=== PATIENT | male | born 1990 | race African-American/Black ===

== ENCOUNTER 2018-12-08 04:56 | Emergency (ER) | payer MEDICAID, OTHER ==
[~2018-12-08] VITALS: Ht 167.6 cm; Wt 77.0 kg
[2018-12-08] MEDS ORDERED: HYDROCODONE/ACETAMINOPHEN 5/325MG TABLET PO ONE (06:30)
[2018-12-08] MEDS ORDERED: TETRACAINE 0.5% OPHTH DROPS 4ML OP ONE (07:45)
[2018-12-08] MEDS ORDERED: FLUORESCEIN SODIUM 1MG/STRIP OP ONE (07:45)
[2018-12-08] MEDS ORDERED: TETANUS, DIPHTHERIA, PERTUSSIS VAC/PF 0.5ML (>7YR OLD) IM ONE (08:15)
[2018-12-08] MEDS ORDERED: LIDOCAINE HCL/PF 1% 10 MG/ML 5ML VIAL IJ ONE ×2 (08:15)
[2018-12-08 10:44] VITALS: BP 98/53
== END 2018-12-08 13:16 | disposition short-term general hospital (02) ==
LOC: ER 04:56
DX: S02.81XA Fracture of other specified skull and facial bones, right side, initial encounter for closed fracture (principal); S01.511A Laceration without foreign body of lip, initial encounter; F17.200 Nicotine dependence, unspecified, uncomplicated; Y08.89XA Assault by other specified means, initial encounter; Y93.89 Activity, other specified; Y92.89 Other specified places as the place of occurrence of the external cause; Y99.8 Other external cause status
CPT/HCPCS: 12014; 70450; 70486; 90471; 90715; 99291; A4217; Z7610; J3490

== ENCOUNTER 2018-12-19 01:20 | Emergency (ER) | payer MEDICAID ==
[~2018-12-19] VITALS: Ht 165.1 cm; Wt 75.0 kg
[2018-12-19 02:27] VITALS: BP 114/78
[2018-12-19] MEDS ORDERED: TRAMADOL 50MG TABLET PO ONE (02:30)
== END 2018-12-19 02:43 | disposition home or self-care (01) ==
LOC: ER 01:20
DX: H57.11 Ocular pain, right eye (principal)
CPT/HCPCS: 99283